=== PATIENT | female | born 1975 | race Caucasian/White ===

== ENCOUNTER 2017-03-01 05:19 | Emergency (ER) | payer BC, OTHER ==
[~2017-03-01] VITALS: Ht 157.5 cm; Wt 90.0 kg
[~2017-03-01 05:19] MED LIST: ACET325S8 PR; CELE40TA PO; METHO500 PO; XANA1TAB6 PO
[2017-03-01 05:22] VITALS: BP 119/80; PULSE 72; RESP 16; TEMP 97.8; O2SAT 99
--- NOTE | 2017-03-01 05:35 | PD ---
HPI Chief Complaint: Flank/Kidney Pain Time Seen by Provider: 05:35 Travel History International Travel<30 days: No Contact w/Intl Traveler<30days: No Traveled to known affect area: No History of Present Illness HPI 41-year-old female came to the emergency room with history of right sided flank pain that started 5 hours ago. Patient has history of kidney stone and says that this feels like a kidney stone. She has been nauseous but no vomiting. No history of hematuria. No history of fever or chills. Vital signs were otherwise stable. Pain is nonradiating and constant. No aggravating or relieving factors identified. PFSH Past Medical History Narrative Medical List of her past medical, surgical, social and family history is reviewed from the nursing note. Asthma: No Blood Disorders: No Anxiety: No Depression: No Heart Rhythm Problems: No Cancer: No High Cholesterol: No Chemotherapy: No Chest Pain: No Congestive Heart Failure: No COPD: No Diabetes: No Diminished Hearing: No Deep Vein Thrombosis: Yes Genitourinary: No Headaches: Yes Immune Disorder: No Kidney Stones: Yes Musculoskeletal: Yes Neurologic: No Psychiatric: No Reproductive: No Respiratory: Yes (HX PE) Radiation Therapy: No Sleep Apnea: No Thyroid Disease: No ?: Not : 3 Para: 1 Miscarriage: 2 Past Surgical History Section: Yes Genitourinary Surgery: Yes (BLADDER STENT/REMOVED. LITHOTRIPSY) Hysterectomy: Yes (PARTIAL) Other Surgery: Yes (BREAST REDUCTION, adenoids removed) Social History Alcohol Use: Yes (OCC) Tobacco Use: No Substance Use: No Allergies-Medications (Allergen,Severity, Reaction): Coded Allergies: hydromorphone (Unverified Allergy, Severe, 03/01/17) meperidine (Unverified Allergy, Severe, VOMITING, 03/01/17) topiramate (Unverified Allergy, Severe, 03/01/17) Comments List of her allergies reviewed from the nursing note. Reported Meds & Prescriptions Reported Meds & Active Scripts Active Flomax (Tamsulosin HCl) 0.4 Mg Cap 0.4 Mg PO HS Zofran Odt (Ondansetron Odt) 4 Mg Tab 4 Mg SL Q6HR PRN Hydrocodone-Acetaminophen 5-325 mg Tab 1 Tab PO Q6H PRN Reported Xanax (Alprazolam) 0.5 Mg Tab 0.5 Mg PO Q4H PRN Cymbalta DR (Duloxetine HCl) 60 Mg Capdr 60 Mg PO DAILY Propranolol (Propranolol HCl) 40 Mg Tab 40 Mg PO Q12HR Narrative Medication List of her home medications reviewed from the nursing note. Review of Systems Except as stated in HPI: all other systems reviewed are Neg Genitourinary: Positive: Flank Pain Physical Exam Narrative GENERAL: Awake, alert, moderate distress SKIN: Focused skin assessment warm/dry. HEAD: Atraumatic. Normocephalic. EYES: Pupils equal and round. No scleral icterus. No injection or drainage. ENT: No nasal bleeding or discharge. Mucous membranes pink and moist. NECK: Trachea midline. No JVD. CARDIOVASCULAR: Regular rate and rhythm. No murmur appreciated. RESPIRATORY: No accessory muscle use. Clear to auscultation. Breath sounds equal bilaterally. GASTROINTESTINAL: Abdomen soft, non-tender, nondistended. Hepatic and splenic margins not palpable. MUSCULOSKELETAL: No obvious deformities. No clubbing. No cyanosis. No edema. NEUROLOGICAL: Awake and alert. No obvious cranial nerve deficits. Motor grossly within normal limits. Normal speech. PSYCHIATRIC: Appropriate mood and affect; insight and judgment normal. Data Data Last Documented VS Orders Orders Complete Blood Count With Diff (03/01/17 05:39) Basic Metabolic Panel (Bmp) (03/01/17 05:39) Urinalysis - C+S If Indicated (03/01/17 05:39) Ct Abd/Pel W/O Iv Contrast (03/01/17 05:39) Ecg Monitoring (03/01/17 05:39) Iv Access Insert/Monitor (03/01/17 05:39) Ketorolac Inj (Toradol Inj) (03/01/17 05:45) Morphine Inj (Morphine Inj) (03/01/17 05:45) Ondansetron Inj (Zofran Inj) (03/01/17 05:45) Sodium Chloride 0.9% Flush (Ns Flush) (03/01/17 05:45) Sodium Chlor 0.9% 1000 Ml Inj (Ns 1000 M (03/01/17 05:39) Ed Discharge Order (03/01/17 06:51) Morphine Inj (Morphine Inj) (03/01/17 07:00) Tamsulosin (Flomax) (03/01/17 07:00) Electrocardiogram (03/01/17 06:27) Labs Laboratory Tests Test 03/01/17 05:40 03/01/17 05:45 Urine Color YELLOW Urine Turbidity HAZY Urine pH 5.5 Urine Specific [place] 1.020 Urine Protein TRACE mg/dL Urine Glucose (UA) NEG mg/dL Urine Ketones NEG mg/dL Urine Occult Blood LARGE Urine Nitrite NEG Urine Bilirubin NEG Urine Urobilinogen LESS THAN 2.0 MG/DL Urine Leukocyte Esterase NEG Urine RBC /hpf Urine WBC 7 /hpf Urine Squamous Epithelial Cells 7 /hpf Urine Bacteria OCC /hpf Urine Mucus MOD /lpf Microscopic Urinalysis Comment CULT NOT INDICATED White Blood Count 6.5 TH/MM3 Red Blood Count 4.42 MIL/MM3 Hemoglobin 13.6 GM/DL Hematocrit 39.9 % Mean Corpuscular Volume 90.2 FL Mean Corpuscular Hemoglobin 30.8 PG Mean Corpuscular Hemoglobin Concent 34.1 % Red Cell Distribution Width 13.8 % Platelet Count 289 TH/MM3 Mean Platelet Volume 7.6 FL Neutrophils (%) (Auto) 55.8 % Lymphocytes (%) (Auto) 33.4 % Monocytes (%) (Auto) 7.9 % Eosinophils (%) (Auto) 2.3 % Basophils (%) (Auto) 0.6 % Neutrophils # (Auto) 3.6 TH/MM3 Lymphocytes # (Auto) 2.2 TH/MM3 Monocytes # (Auto) 0.5 TH/MM3 Eosinophils # (Auto) 0.1 TH/MM3 Basophils # (Auto) 0.0 TH/MM3 CBC Comment DIFF FINAL Differential Comment Blood Urea Nitrogen 12 MG/DL Creatinine 0.71 MG/DL Random Glucose 121 MG/DL Calcium Level 8.8 MG/DL Sodium Level 138 MEQ/L Potassium Level 3.9 MEQ/L Chloride Level 104 MEQ/L Carbon Dioxide Level 24.6 MEQ/L Anion Gap 9 MEQ/L Estimat Glomerular Filtration Rate 90 ML/MIN [facility] Medical Decision Making Medical Screen Exam Complete: Yes Emergency Medical Condition: Yes Medical Record Reviewed: Yes Interpretation(s) Twelve-lead EKG was reviewed by me. Normal sinus rhythm, normal axis, nonspecific ST-T wave changes. Heart rate of 75 bpm. Differential Diagnosis Ureteral colic, pyelonephritis, muscular skeletal pain Narrative Course 6:58 AM blood test results of back and within acceptable limits. Patient was medicated for pain. I looked at the CAT scan report and shows a proximal right ureter 6 mm stone. Patient's pain is controlled at this point. I'm giving her Flomax and one more dose of pain medication and she will be discharged home. I explained to her the incidental finding on the CAT scan report of her bilateral adnexal masses. She will get a copy of the CAT scan report and I have asked her to take this report to her primary care or her BAROMETERS CALIBRATOR to get an outpatient MRI. Patient had a brief episode of tachycardia while she was in getting the fluid. Patient has history of frequent tachycardia she is on propranolol for it. 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 Procedures EKG Prior to Arrival: No Diagnosis Primary Impression: Ureteral colic Additional Impression: Adnexal mass Referrals: Vamsi Tejada MD 2 days Primary Care Physician 2 days Additional Instructions: Please return to the ER if the condition worsens or any other new concerns. Otherwise follow-up with your primary care and the urologist whose name and number been given to you. Please take the CAT scan report to your primary care and/or your BAROMETERS CALIBRATOR and get an outpatient MRI done. Take the medications as per the prescription direction. Med/Other Pt SpecificInfo: Prescription(s) given Scripts Tamsulosin (Flomax) 0.4 Mg Cap 0.4 MG PO HS for Manage Prostate Problems, #10 CAP 0 Refills Prov: Roderick Rhodes MD 03/01/17 Ondansetron Odt (Zofran Odt) 4 Mg Tab 4 MG SL Q6HR Y for Nausea/Vomiting, #10 TAB 0 Refills Prov: Roderick Rhodes MD 03/01/17 Hydrocodone-Acetaminophen (Hydrocodone-Acetaminophen) 5-325 mg Tab 1 TAB PO Q6H Y for PAIN, #12 TAB 0 Refills Prov: Roderick Rhodes MD 03/01/17 Disposition: 01 DISCHARGE HOME Condition: Stable Roderick Rhodes MD Mar 01, 2017 05:35
[2017-03-01] MEDS ORDERED: SODIUM CHLOR 0.9% 1000 ML INJ 1,000 ML IV ONE (05:39)
[2017-03-01] MEDS ORDERED: KETOROLAC TROMETHAMINE 30 MG/ML (IVP) VIAL IV PUSH ONE (05:45)
[2017-03-01] MEDS ORDERED: ONDANSETRON HCL 4 MG/2 ML VIAL IV PUSH ONE (05:45)
[2017-03-01] MEDS ORDERED: MORPHINE SULFATE 4 MG/ML INJ IV PUSH ONE ×2 (05:45→07:00)
[2017-03-01] MEDS ORDERED: SODIUM CHLORIDE 0.9% FLUSH 10 ML FLUSH IVF PRN (05:45)
[2017-03-01 05:49] VITALS: BP 115/68; PULSE 78; RESP 18; O2SAT 97
[2017-03-01] MEDS ORDERED: ALPR.5 PO (06:04)
[2017-03-01] MEDS ORDERED: CYMB60CA PO (06:04)
[2017-03-01] MEDS ORDERED: PROP40TA3 PO (06:04)
[2017-03-01 06:25] LABS: AUTOMATED NEUTROPHIL # 3.6 TH/MM3 (1.8-7.7); BASOPHIL % 0.6 % (0.0-2.0); EOSINOPHIL # 0.1 TH/MM3 (0-0.4); EOSINOPHIL % 2.3 % (0.0-4.0); HEMATOCRIT 39.9 % (35.0-46.0); HEMO FLAGS DIFF FINAL; LYMPH % 33.4 % (9.0-44.0); LYMPHOCYTE # 2.2 TH/MM3 (1.0-4.8); MEAN CELL VOLUME 90.2 FL (80.0-100.0); MEAN CORPUSCULAR HEMOGLOBIN 30.8 PG (27.0-34.0); MEAN CORPUSCULAR HGB CONC 34.1 % (32.0-36.0); MONO % 7.9 % (0.0-8.0); NEUT % 55.8 % (16.0-70.0); PLATELET COUNT 289 TH/MM3 (150-450); RED BLOOD COUNT 4.42 MIL/MM3 (4.00-5.30); RED CELL DISTRIBUTION WIDTH 13.8 % (11.6-17.2); WHITE BLOOD COUNT 6.5 TH/MM3 (4.0-11.0)
--- NOTE | 2017-03-01 06:28 | RADRPT ---
EXAM DATE/TIME: 03/01/2017 05:42 [place] COMPARISON: No previous studies available for comparison. INDICATIONS : Right flank pain, evaluate for renal stone ORAL CONTRAST: No oral contrast ingested. RADIATION DOSE: 19.84 CTDIvol (mGy) MEDICAL HISTORY : Renal calculi. Cardiovascular disease Deep venous thrombosis. SURGICAL HISTORY : Hysterectomy. ENCOUNTER: Initial ACUITY: 2 days PAIN SCALE: 4/10 LOCATION: Right flank TECHNIQUE: Volumetric scanning of the abdomen and pelvis was performed. Using automated exposure control and ad justment of the mA and/or kV according to patient size, radiation dose was kept as low as reasonably achievable to obtain optimal diagnostic quality images. DICOM format image data is available electro nically for review and comparison. FINDINGS: Mild fatty infiltration of the liver and hepatomegaly. Gallbladder, spleen, pancreas, adrenal glands are unremarkable. There are nonobstructing calculi ON the left including 5 mm left midpole calculus, or 0.9 mm left lower pole calculus, and there is a right proximal ureteral stone with mild right-side d hydronephrosis seen. The stone measures 6.1 mm on the 64. Urinary bladder unremarkable. The patient is status post hysterectomy. There is a left ovarian soft tissue mass measuring 3.9 x 3.5 cm in AP a nd transverse dimension suspected. A right ovarian cystic and solid appearing mass is also suspected, solid component 2.2 x 2.2 cm on image 116 and cystic component measuring 2.2 x 2.1 cm on image 124. There is no adenopathy. No aneurysm. Appendix normal. Lung bases are clear. Osseous structures are in tact. CONCLUSION: Bilateral adnexal masses are noted and felt to be ovarian in etiology. MRI of the pelvis with and wit hout contrast is suggested for further characterization. Nonobstructing left renal calculi, and a right proximal ureteral stone at the ureteropelvic junction identified with mild right hydronephrosis. Chris Umana MD on March 01, 2017 at 6:23 Board Certified Radiologist. This report was verified electronically.
[2017-03-01 06:35] LABS: BACTERIA, URINE OCC /hpf; BLOOD, URINE LARGE (NEG); COMMENT (UR) CULT NOT INDICATED; CULTURE IF INDICATED CULT NOT INDICATED; GLUCOSE,URINE NEG (NEG); KETONE, URINE NEG (NEG); MUCUS URINE MOD /lpf (OCC); NITRITE,URINE NEG (NEG); PH, URINE 5.5 (5.0-8.5); SQUAMOUS EPITHELIAL CELL URINE 7 /hpf (0-5); URINE COLOR YELLOW (YELLW/STRAW)
[2017-03-01 06:38] LABS: BICARBONATE 24.6 MEQ/L (21.0-32.0); POTASSIUM 3.9 MEQ/L (3.5-5.1)
[2017-03-01] MEDS ORDERED: HYDR-3516 PO (06:55)
[2017-03-01] MEDS ORDERED: ZOFR4TAB3 SL (06:55)
[2017-03-01] MEDS ORDERED: TAMS5CAP PO (06:56)
[2017-03-01] MEDS ORDERED: TAMSULOSIN HCL 0.4 MG CAP PO ONE (07:00)
[2017-03-01 07:10] VITALS: BP 99/54; PULSE 70; RESP 15; O2SAT 98
--- NOTE | 2017-03-01 07:53 | EKG ---
Date Performed: 03/01/2017 Time Performed: 06:27:04 PTAGE: 41 years EKG: Sinus rhythm NORMAL ECG PREVIOUS TRACING : 03/07/2011 13.55 Compared to prior electrocardiogram, [place] has rotated right vang. DOCTOR: Ghanshyam Mary Interpretating Date/Time 03/01/2017 07:52:36
== END 2017-03-01 07:31 | disposition home or self-care (01) ==
LOC: NEPC 05:19
DX: N13.2 Hydronephrosis with renal and ureteral calculous obstruction (principal); Z87.442 Personal history of urinary calculi; Z86.718 Personal history of other venous thrombosis and embolism; Z79.899 Other long term (current) drug therapy; Z88.8 Allergy status to other drugs, medicaments and biological substances; Z88.5 Allergy status to narcotic agent
CPT/HCPCS: 74176; 80048; 81001; 85025; 93005; 96361; 96374; 96375; 96376; 99285; J1885; J2270; J2405; J7030

== ENCOUNTER 2017-09-07 06:16 | Inpatient (IN) | payer BC, OTHER ==
[~2017-09-07] VITALS: Ht 157.5 cm; Wt 95.9 kg
[2017-09-07] VITALS (10 sets, daily range): BP systolic 104–124; BP diastolic 54–75; PULSE 55–77; RESP 16–20; TEMP 98–98.4; O2SAT 97–99
[~2017-09-07 06:16] MED LIST changes: -ACET325S8 PR; +ALPR.5 PO; -CELE40TA PO; +CYMB60CA PO; +HYDR-3516 PO; -METHO500 PO; +PROP40TA3 PO; +TAMS5CAP PO; -XANA1TAB6 PO; +ZOFR4TAB3 SL
--- NOTE | 2017-09-07 07:09 | RADRPT ---
EXAM DATE: 09/07/2017 6:59 AM EDT AGE/SEX: 41 years / Female INDICATIONS: Chest pain. CLINICAL DATA: This is the patient's initial encounter. Patient reports that signs and symptoms have been present for 1 day and indicates a pain score of 6/10. MEDICAL/SURGICAL HISTORY: . PE. None. COMPARISON: No prior exams available for comparison. FINDINGS: Portable AP view of the chest demonstrates a normal-sized cardiac silhouette. The lungs demonstrate n o definite effusion, consolidation, or pneumothorax. The bones and soft tissues demonstrate no acute finding. EKG lines overlie the patient CONCLUSION: No acute cardiopulmonary abnormality is identified. Electronically signed by: Ryne Garcia MD 09/07/2017 7:07 AM EDT
[2017-09-07] MEDS ORDERED: SODIUM CHLOR 0.9% 1000 ML INJ 1,000 ML IV ONE (07:15)
[2017-09-07] MEDS ORDERED: ASPIRIN 81 MG CHEW TAB CHEW ONE (07:15)
--- NOTE | 2017-09-07 07:20 | PD ---
HPI Chief Complaint: Chest Pain Time Seen by Provider: 07:05 Travel History International Travel<30 days: No Contact w/Intl Traveler<30days: No Traveled to known affect area: No History of Present Illness HPI The patient is a 41-year-old female who presents to the emergency department for chest pain. The patient states she has had intermittent substernal, burning and pressure related pain for 1 week. The patient states the chest pain is intermittent, is associated with shortness of breath and mild nausea. The patient does have a history of an enlarged atrium and was followed previously by her bicycle i assembler, Dr. Arias. The patient does have a previous history of pulmonary embolism after she had a stent placed for kidney stone 6 years ago, was on Coumadin for 1 year and then taken off of the Coumadin. The patient thinks she had a PE at that time secondary to a DVT in an upper extremity. She denies any recent swelling lower extremities. The chest pain is intermittent, she denies any associated diaphoresis. She denies any exertional symptoms. Symptoms are moderate. Patient is also followed by her primary physician, Dr. José Don. The patient denies any history of hypertension, hyperlipidemia, tobacco use, or significant family medical history for early heart disease. She does have a history of type 2 diabetes which was controlled by diet, is no longer diabetic. PFSH Past Medical History Asthma: No Blood Disorders: No Anxiety: No Depression: No Heart Rhythm Problems: No Cancer: No High Cholesterol: No Chemotherapy: No Chest Pain: No Congestive Heart Failure: No COPD: No Diabetes: No Diminished Hearing: No Deep Vein Thrombosis: Yes Genitourinary: No Headaches: Yes Immune Disorder: No Kidney Stones: Yes Musculoskeletal: Yes Neurologic: No Psychiatric: No Reproductive: No Respiratory: Yes (HX PE) Radiation Therapy: No Sleep Apnea: No Thyroid Disease: No ?: Not : 3 Para: 1 Miscarriage: 2 Past Surgical History Section: Yes Genitourinary Surgery: Yes (BLADDER STENT/REMOVED. LITHOTRIPSY) Hysterectomy: Yes (PARTIAL) Other Surgery: Yes (BREAST REDUCTION, adenoids removed) Social History Alcohol Use: Yes (OCC) Tobacco Use: No Substance Use: No Allergies-Medications (Allergen,Severity, Reaction): Coded Allergies: hydromorphone (Unverified Allergy, Severe, 09/07/17) meperidine (Unverified Allergy, Severe, VOMITING, 09/07/17) topiramate (Unverified Allergy, Severe, 09/07/17) Reported Meds & Prescriptions Reported Meds & Active Scripts Active Flomax (Tamsulosin HCl) 0.4 Mg Cap 0.4 Mg PO HS Zofran Odt (Ondansetron Odt) 4 Mg Tab 4 Mg SL Q6HR PRN Hydrocodone-Acetaminophen 5-325 mg Tab 1 Tab PO Q6H PRN Reported Xanax (Alprazolam) 0.5 Mg Tab 0.5 Mg PO Q4H PRN Cymbalta DR (Duloxetine HCl) 60 Mg Capdr 60 Mg PO DAILY Propranolol (Propranolol HCl) 40 Mg Tab 40 Mg PO Q12HR Review of Systems Except as stated in HPI: all other systems reviewed are Neg General / Constitutional: No: Fever HENT: No: Lightheadedness Cardiovascular: Positive: Chest Pain or Discomfort, Palpitations, Tachycardia, No: Diaphoresis Respiratory: Positive: Shortness of Breath Gastrointestinal: Positive: Nausea, No: Vomiting Musculoskeletal: No: Edema Neurologic: No: Dizziness Psychiatric: Positive: Anxiety Physical Exam Narrative GENERAL: Awake, alert, pleasant 41-year-old female appears her stated age and is slightly anxious. SKIN: Focused skin assessment warm/dry. HEAD: Atraumatic. Normocephalic. EYES: Pupils equal and round. No scleral icterus. No injection or drainage. ENT: No nasal bleeding or discharge. Mucous membranes pink and moist. NECK: Trachea midline. No JVD. CARDIOVASCULAR: Regular rate and rhythm. No murmur appreciated. RESPIRATORY: No accessory muscle use. Clear to auscultation. Breath sounds equal bilaterally. GASTROINTESTINAL: Abdomen soft, non-tender, nondistended. No rebound tenderness. MUSCULOSKELETAL: No obvious deformities. No clubbing. No cyanosis. No edema. NEUROLOGICAL: Awake and alert. No obvious cranial nerve deficits. Motor grossly within normal limits. Normal speech. Nonfocal. PSYCHIATRIC: Slightly anxious, insight and judgment are normal. Data Data Last Documented VS Vital Signs Date Time Temp Pulse Resp B/P (MAP) Pulse Ox O2 Delivery O2 Flow Rate FiO2 09/07/17 10:22 61 20 104/61 (75) 99 Room Air 09/07/17 06:22 98.0 Orders Orders Complete Blood Count With Diff (09/07/17 06:46) Ckmb (Isoenzyme) Profile (09/07/17 06:46) Troponin I (09/07/17 06:46) Chest, Single Ap (09/07/17 06:46) Iv Access Insert/Monitor (09/07/17 06:46) Ecg Monitoring (09/07/17 06:46) Oxygen Administration (09/07/17 06:46) Oximetry (09/07/17 06:46) D-Dimer (09/07/17 07:15) Aspirin Chew (Aspirin Chew) (09/07/17 07:15) Sodium Chlor 0.9% 1000 Ml Inj (Ns 1000 M (09/07/17 07:15) Lipase (09/07/17 07:15) Ed Urine Pregnancytest Poc (09/07/17 07:15) Comprehensive Metabolic Panel (09/07/17 07:42) Metoclopramide Inj (Reglan Inj) (09/07/17 08:00) Ct Pulmonary Angiogram (09/07/17 ) Morphine Inj (Morphine Inj) (09/07/17 09:30) Electrocardiogram (09/07/17 06:35) Iohexol 350 Inj (Omnipaque 350 Inj) (09/07/17 10:43) Rivaroxaban (Xarelto) (09/07/17 11:15) Admit Order (Ed Use Only) (09/07/17 11:24) Labs Laboratory Tests Test 09/07/17 06:42 09/07/17 07:30 White Blood Count 5.4 TH/MM3 Red Blood Count 4.25 MIL/MM3 Hemoglobin 12.8 GM/DL Hematocrit 38.2 % Mean Corpuscular Volume 89.8 FL Mean Corpuscular Hemoglobin 30.1 PG Mean Corpuscular Hemoglobin Concent 33.5 % Red Cell Distribution Width 13.4 % Platelet Count 254 TH/MM3 Mean Platelet Volume 7.6 FL Neutrophils (%) (Auto) 47.2 % Lymphocytes (%) (Auto) 41.3 % Monocytes (%) (Auto) 8.9 % Eosinophils (%) (Auto) 2.0 % Basophils (%) (Auto) 0.6 % Neutrophils # (Auto) 2.5 TH/MM3 Lymphocytes # (Auto) 2.2 TH/MM3 Monocytes # (Auto) 0.5 TH/MM3 Eosinophils # (Auto) 0.1 TH/MM3 Basophils # (Auto) 0.0 TH/MM3 CBC Comment DIFF FINAL Differential Comment Blood Urea Nitrogen 16 MG/DL Creatinine 0.68 MG/DL Random Glucose 110 MG/DL Total Protein 6.8 GM/DL Albumin 3.5 GM/DL Calcium Level 9.3 MG/DL Alkaline Phosphatase 60 U/L Aspartate Amino Transf (AST/SGOT) 15 U/L Alanine Aminotransferase (ALT/SGPT) 23 U/L Total Bilirubin 0.2 MG/DL Sodium Level 141 MEQ/L Potassium Level 3.9 MEQ/L Chloride Level 107 MEQ/L Carbon Dioxide Level 23.8 MEQ/L Anion Gap 10 MEQ/L Estimat Glomerular Filtration Rate 95 ML/MIN Total Creatine Kinase 71 U/L Troponin I LESS THAN 0.02 NG/ML Lipase 147 U/L D-Dimer Quantitative (PE/DVT) 0.56 MG/L FEU [facility] Medical Decision Making Medical Screen Exam Complete: Yes Emergency Medical Condition: Yes Medical Record Reviewed: Yes Interpretation(s) EKG reveals normal sinus rhythm with a rate of 62. No ischemic changes or ectopy noted. Last Impressions Chest X-Ray 09/07/17 0646 Signed Impressions: CONCLUSION: No acute cardiopulmonary abnormality is identified. CT Angiography 09/07/17 0000 Signed Impressions: CONCLUSION: 1. There is a small segmental and subsegmental filling defect in one of the [facility] lower lobe pulmonary arteries. No other PE is identified. 2. Remainder of the examination demonstrates no acute abnormality. Laboratory Tests Test 09/07/17 06:42 09/07/17 07:30 White Blood Count 5.4 TH/MM3 Red Blood Count 4.25 MIL/MM3 Hemoglobin 12.8 GM/DL Hematocrit 38.2 % Mean Corpuscular Volume 89.8 FL Mean Corpuscular Hemoglobin 30.1 PG Mean Corpuscular Hemoglobin Concent 33.5 % Red Cell Distribution Width 13.4 % Platelet Count 254 TH/MM3 Mean Platelet Volume 7.6 FL Neutrophils (%) (Auto) 47.2 % Lymphocytes (%) (Auto) 41.3 % Monocytes (%) (Auto) 8.9 % Eosinophils (%) (Auto) 2.0 % Basophils (%) (Auto) 0.6 % Neutrophils # (Auto) 2.5 TH/MM3 Lymphocytes # (Auto) 2.2 TH/MM3 Monocytes # (Auto) 0.5 TH/MM3 Eosinophils # (Auto) 0.1 TH/MM3 Basophils # (Auto) 0.0 TH/MM3 CBC Comment DIFF FINAL Differential Comment Blood Urea Nitrogen 16 MG/DL Creatinine 0.68 MG/DL Random Glucose 110 MG/DL Total Protein 6.8 GM/DL Albumin 3.5 GM/DL Calcium Level 9.3 MG/DL Alkaline Phosphatase 60 U/L Aspartate Amino Transf (AST/SGOT) 15 U/L Alanine Aminotransferase (ALT/SGPT) 23 U/L Total Bilirubin 0.2 MG/DL Sodium Level 141 MEQ/L Potassium Level 3.9 MEQ/L Chloride Level 107 MEQ/L Carbon Dioxide Level 23.8 MEQ/L Anion Gap 10 MEQ/L Estimat Glomerular Filtration Rate 95 ML/MIN Total Creatine Kinase 71 U/L Troponin I LESS THAN 0.02 NG/ML Lipase 147 U/L D-Dimer Quantitative (PE/DVT) 0.56 MG/L FEU Differential Diagnosis Differential diagnosis includes cardiomyopathy, pulmonary embolism, acute coronary syndrome, dysrhythmia, electrolyte abnormality, dehydration, somatization, anxiety, GERD, pleural effusion, pneumonia. Narrative Course IV was established, labs are drawn and sent, the patient was placed on cardiac telemetry monitoring and continuous pulse oximetry monitoring. EKG was ordered and interpreted. Chest x-ray was obtained. D-dimer was sent to lab. The patient was a bead filler aspirin 162 mg orally and 1 L of IV fluids. The patient' s heart rate would vary from the 80s and 90s, however, would drop to the 40s, the patient would feel lightheaded when it would drop into the 40s. The patient states she has been on her propanolol for some time, however, does note she has bouts of bradycardia with symptoms including lightheadedness and dizziness. The patient's d-dimer was positive, therefore, CT pulmonary angiogram was ordered. The patient's initial troponin and CPK were within normal limits. CT does reveal a filling defect in 1 of the segmental and subsegmental arteries in the right lower lobe, therefore, the patient was placed on Xarelto. The patient appears to have a small PE. She also has runs of bradycardia and tachycardia, may benefit from cardiac telemetry monitoring and/or Holter monitor with echocardiogram. Therefore, the patient will be admitted. Physician Communication Physician Communication The on-call medical service was paged for admission, I discussed the patient with Dr. Richardson who agrees with admission. Diagnosis Primary Impression: Dysrhythmia Qualified Codes: I49.9 - Cardiac arrhythmia, unspecified Additional Impressions: Atypical chest pain Pulmonary embolism Qualified Codes: I26.99 - Other pulmonary embolism without acute cor pulmonale Admitting Information Admitting Physician Requests: Admit Condition: Stable Troy Barfield MD Sep 07, 2017 07:20
[2017-09-07 07:25] LABS: AUTOMATED NEUTROPHIL # 2.5 TH/MM3 (1.8-7.7); BASOPHIL % 0.6 % (0.0-2.0); EOSINOPHIL # 0.1 TH/MM3 (0-0.4); HEMATOCRIT 38.2 % (35.0-46.0); HEMOGLOBIN 12.8 GM/DL (11.6-15.3); LYMPH % 41.3 % (9.0-44.0); LYMPHOCYTE # 2.2 TH/MM3 (1.0-4.8); MEAN CELL VOLUME 89.8 FL (80.0-100.0); MEAN CORPUSCULAR HEMOGLOBIN 30.1 PG (27.0-34.0); MEAN CORPUSCULAR HGB CONC 33.5 % (32.0-36.0); MEAN PLATELET VOLUME 7.6 FL (7.0-11.0); MONO % 8.9 % (0.0-8.0); MONOCYTE # 0.5 TH/MM3 (0-0.9); NEUT % 47.2 % (16.0-70.0); PLATELET COUNT 254 TH/MM3 (150-450); RED BLOOD COUNT 4.25 MIL/MM3 (4.00-5.30); RED CELL DISTRIBUTION WIDTH 13.4 % (11.6-17.2); WHITE BLOOD COUNT 5.4 TH/MM3 (4.0-11.0)
[2017-09-07 07:44] LABS: TROPONIN I LESS THAN 0.02 NG/ML (0.02-0.05)
[2017-09-07] MEDS ORDERED: MORPHINE SULFATE 2 MG/ML SYRINGE IV PUSH ONE (08:00)
[2017-09-07] MEDS ORDERED: METOCLOPRAMIDE HCL 10 MG/2 ML VIAL IV PUSH ONE (08:00)
[2017-09-07 08:26] LABS: ALT (GPT) 23 U/L (10-53)
[2017-09-07 08:29] LABS: ALBUMIN 3.5 GM/DL (3.4-5.0); ALKALINE PHOSPHATASE 60 U/L (45-117); AST (GOT) 15 U/L (15-37); BICARBONATE 23.8 MEQ/L (21.0-32.0); BLOOD UREA NITROGEN 16 MG/DL (7-18); CALCIUM 9.3 MG/DL (8.5-10.1); CHLORIDE 107 MEQ/L (98-107); CREATININE 0.68 MG/DL (0.50-1.00); GLOMERULAR FILTRATION RATE 95 ML/MIN (>89); GLUCOSE,RANDOM 110 MG/DL (74-106); SODIUM (NA) 141 MEQ/L (136-145); TOTAL BILIRUBIN ADULT 0.2 MG/DL (0.2-1.0); TOTAL PROTEIN 6.8 GM/DL (6.4-8.2)
[2017-09-07] MEDS ORDERED: MORPHINE SULFATE 4 MG/ML INJ IV PUSH ONE (09:30)
[2017-09-07] MEDS ORDERED: IOHEXOL 350 MG/ML 10 ML VIAL (for RAD DIAG) IVCONTRAST ONE (10:43)
--- NOTE | 2017-09-07 10:56 | RADRPT ---
EXAM DATE: 09/07/2017 10:44 AM EDT AGE/SEX: 41 years / Female INDICATIONS: Left side chest pain, intermittent shortness of breath. CLINICAL DATA: This is the patient's initial encounter. Patient reports that signs and symptoms have been present for 1 week and indicates a pain score of 5/10. MEDICAL/SURGICAL HISTORY: Deep venous thrombosis. Cardiovascular disease. Pulmonary embolism. . P artial hysterectomy. RADIATION DOSE: 11.05 CTDI (mGy) COMPARISON: No prior exams available for comparison. TECHNIQUE: Volumetric scanning was performed using a multi-row detector CT scanner during bolus infu paulette of 75 ml Omnipaque 350 (iohexol) nonionic water-soluble contrast as a single exam dose. The star a was post processed with a variety of visualization algorithms including full volume maximum intensi ty projection and sliding thin slab reformation. Using automated exposure control and adjustment of the mA and/or kV according to patient size, radiation dose was kept as low as reasonably achievable t o obtain optimal diagnostic quality images. FINDINGS: Pulmonary arteries: There is a small filling defect in the right lower lobe segmental and subsegmenta l level pulmonary arteries. No other PE is identified. Lungs: No consolidation or pneumothorax. No concerning pulmonary nodule is identified. Mediastinum: The heart and great vessels demonstrate no acute abnormality. No lymphadenopathy is pre sent. Pleurae: No pleural effusion or pleural thickening. Axillae: No lymphadenopathy. Musculoskeletal: The bones and soft tissues demonstrate no acute abnormality. Miscellaneous: The visualized upper abdominal structures demonstrate no acute abnormality. CONCLUSION: 1. There is a small segmental and subsegmental filling defect in one of the right lower lobe pulmona ry arteries. No other PE is identified. 2. Remainder of the examination demonstrates no acute abnormality. Electronically signed by: Ryne Garcia MD 09/07/2017 10:54 AM EDT
[2017-09-07] MEDS ORDERED: RIVAROXABAN 15 MG TAB PO ONE (11:15)
--- NOTE | 2017-09-07 12:03 | HHI.HP ---
[facility] Service Family Medicine Primary Care Physician José Don M.D. Admission Diagnosis Pulmonary embolism, dysrhythmia, chest pain Diagnoses: International Travel<30 Days: No Contact w/Intl Traveler<30days: No Known Affected Area: No History of Present Illness Mr. Leblanc is a 41-year-old female presenting to the ED with palpitations, shortness of breath, and chest pain. Patient states that she has had intermittent episodes of tachycardia and bradycardia over the last week with associated chest pain. She describes the chest pain as pressure-like up to 6/ 10 radiating up to her left shoulder. She reports that she has 5-6 episodes per day which are worse at night. These episodes wake her from sleep and lasted approximately 10-15 minutes. Each episode is associated with shortness of breath without diaphoresis. She can describe no alleviating factors, but does state that the episodes "go away on their own." These episodes are not worsened by exertion per her report. She has a history of atrial enlargement that was diagnosed approximately 3 years ago with episodes of intermittent tachycardia. She also has a history of pulmonary embolism that was diagnosed approximately 6 years ago after being hospitalized for a kidney stone with left upper extremity DVT. She was then on Coumadin for approximately 1 year which was discontinued. Her only other complaint is some early satiety with nausea, but denies any fevers, unexplained weight loss/gain, or night sweats. (Juan Miguel Richardson MD R2) Review of Systems Constitutional: DENIES: Fever, Chills Eyes: DENIES: Blurred vision, Double Vision Ears, nose, mouth, throat: DENIES: Throat pain, Running Nose Respiratory: COMPLAINS OF: Shortness of breath, DENIES: Cough, Hemoptysis, Sputum production Cardiovascular: COMPLAINS OF: Chest pain, Palpitations, DENIES: Syncope, Lower Extremity Edema Gastrointestinal: COMPLAINS OF: Nausea, DENIES: Abdominal pain, Constipation, Diarrhea, Vomiting Genitourinary: DENIES: Hematuria, Dysuria Musculoskeletal: DENIES: Joint pain, Muscle aches Integumentary: DENIES: Rash Hematologic/lymphatic: DENIES: Lymphadenopathy Immunologic/allergic: DENIES: Urticaria Neurologic: COMPLAINS OF: Headache Psychiatric: DENIES: Mood changes (Juan Miguel Richardson MD R2) Past Family Social History Past Medical History DVT in LUE resulting in PE (s/p IV during admission for kidney stones) Kidney stones Enlarged L atria Migraines Ovarian Cysts T2DM - controlled with diet DJD Anxiety Past Surgical History Partial Hysterectomy x1 Breast reduction Tonsillectomy (Juan Miguel Richardson MD R2) Allergies: Coded Allergies: hydromorphone (Unverified Allergy, Severe, 09/07/17) meperidine (Unverified Allergy, Severe, VOMITING, 09/07/17) topiramate (Unverified Allergy, Severe, 09/07/17) Family History Father - Liver malignancy, Mother - HPLD, otherwise healthy Children - Healthy Social History Lives with and 2 children. Works at [employer]. Tobacco - No reported history Alcohol - Socially, last drink was last Saturday, 6-8 drinks per occasion Illicit - No reported history (Juan Miguel Richardson MD R2) Physical Exam Vital Signs Vital Signs Date Time Temp Pulse Resp B/P (MAP) Pulse Ox O2 Delivery O2 Flow Rate FiO2 09/07/17 10:22 61 20 104/61 (75) 99 Room Air 09/07/17 10:00 20 09/07/17 07:21 69 20 112/67 (82) 97 Room Air 09/07/17 06:48 99 Room Air 09/07/17 06:40 69 16 108/75 (86) 99 Room Air 09/07/17 06:22 98.0 72 18 124/66 (85) 98 Physical Exam GENERAL: Well-appearing female lying in bed in no acute distress with family at the bedside. SKIN: Warm and dry. No rash. HEENT: Atraumatic, normocephalic with extraocular motions intact. No rhinorrhea. No palpable LAD, JVD, or thyroid abnormality. CARDIOVASCULAR: Regular rate and rhythm without obvious murmurs, gallops, or rubs. 2+ pulses in all four extremities. RESPIRATORY: Clear to auscultation bilaterally with no CRW. No increased work of breathing at this time on room air. Patient able to communicate in full sentences. GASTROINTESTINAL: Abdomen soft, non-tender, nondistended with positive bowel sounds. No masses appreciated. MUSCULOSKELETAL: No cyanosis or edema. No calf tenderness. Ambulating well without assistance. NEURO/PSYCH: Afocal. Awake, alert, and oriented x3. Normal speech and judgement. Laboratory Laboratory Tests Test 09/07/17 06:42 09/07/17 07:30 White Blood Count 5.4 Red Blood Count 4.25 Hemoglobin 12.8 Hematocrit 38.2 Mean Corpuscular Volume 89.8 Mean Corpuscular Hemoglobin 30.1 Mean Corpuscular Hemoglobin Concent 33.5 Red Cell Distribution Width 13.4 Platelet Count 254 Mean Platelet Volume 7.6 Neutrophils (%) (Auto) 47.2 Lymphocytes (%) (Auto) 41.3 Monocytes (%) (Auto) 8.9 Eosinophils (%) (Auto) 2.0 Basophils (%) (Auto) 0.6 Neutrophils # (Auto) 2.5 Lymphocytes # (Auto) 2.2 Monocytes # (Auto) 0.5 Eosinophils # (Auto) 0.1 Basophils # (Auto) 0.0 CBC Comment DIFF FINAL Differential Comment Blood Urea Nitrogen 16 Creatinine 0.68 Random Glucose 110 Total Protein 6.8 Albumin 3.5 Calcium Level 9.3 Alkaline Phosphatase 60 Aspartate Amino Transf (AST/SGOT) 15 Alanine Aminotransferase (ALT/SGPT) 23 Total Bilirubin 0.2 Sodium Level 141 Potassium Level 3.9 Chloride Level 107 Carbon Dioxide Level 23.8 Anion Gap 10 Estimat Glomerular Filtration Rate 95 Total Creatine Kinase 71 Troponin I LESS THAN 0.02 Lipase 147 D-Dimer Quantitative (PE/DVT) 0.56 (Juan Miguel Richardson MD R2) Result Diagram: 09/07/17 0642 09/07/17 0642 Imaging Last 72 hours Impressions Chest X-Ray 09/07/17 0646 Signed Impressions: CONCLUSION: No acute cardiopulmonary abnormality is identified. CT Angiography 09/07/17 0000 Signed Impressions: CONCLUSION: 1. There is a small segmental and subsegmental filling defect in one of the [facility] lower lobe pulmonary arteries. No other PE is identified. 2. Remainder of the examination demonstrates no acute abnormality. (Juan Miguel Richardson MD R2) Caprini VTE Risk Assessment Caprini VTE Risk Assessment: Mod/High Risk (score >= 2) Caprini Risk Assessment Model Point Value = 1 Point Value = 2 Point Value = 3 Point Value = 5 Age 41-60 Minor surgery BMI > 25 kg/m2 Swollen legs Varicose veins or History of unexplained or recurrent spontaneous Oral contraceptives or hormone replacement Sepsis (< 1 month) Serious lung disease, including pneumonia (< 1 month) Abnormal pulmonary function Acute myocardial infarction Congestive heart failure (< 1 month) History of inflammatory bowel disease Medical patient at bed rest Age 61-74 Arthroscopic surgery Major open surgery (> 45 min) Laparoscopic surgery (> 45 min) Malignancy Confined to bed (> 72 hours) Immobilizing plaster cast Central venous access Age >= 75 History of VTE Family history of VTE Factor V Leiden Prothrombin [id number] Lupus anticoagulant Anticardiolipin antibodies Elevated serum homocysteine Heparin-induced thrombocytopenia Other congenital or acquired thrombophilia Stroke (< 1 month) Elective arthroplasty Hip, pelvis, or leg fracture Acute spinal cord injury (< 1 month) Prophylaxis Regimen Total Risk Factor Score Risk Level Prophylaxis Regimen 0-1 Low Early ambulation 2 Moderate Order ONE of the following: *Sequential Compression Device (SCD) *Heparin 5000 units SQ BID 3-4 Higher Order ONE of the following medications: *Heparin 5000 units SQ TID *Enoxaparin/Lovenox 40 mg SQ daily (WT < 150 kg, CrCl > 30 mL/min) *Enoxaparin/Lovenox 30 mg SQ daily (WT < 150 kg, CrCl > 10-29 mL/min) *Enoxaparin/Lovenox 30 mg SQ BID (WT < 150 kg, CrCl > 30 mL/min) AND/OR *Sequential Compression Device (SCD) 5 or more Highest Order ONE of the following medications: *Heparin 5000 units SQ TID (Preferred with Epidurals) *Enoxaparin/Lovenox 40 mg SQ daily (WT < 150 kg, CrCl > 30 mL/min) *Enoxaparin/Lovenox 30 mg SQ daily (WT < 150 kg, CrCl > 10-29 mL/min) *Enoxaparin/Lovenox 30 mg SQ BID (WT < 150 kg, CrCl > 30 mL/min) AND *Sequential Compression Device (SCD) (Juan Miguel Richardson MD R2) Assessment and Plan Assessment and Plan Mrs. Leblanc is a 41-year-old female admitted for pulmonary embolism. Code Status Full code Discussed Condition With Dr. Barfield, ER physician (Juan Miguel Richardson MD R2) Attending Attestation Patient seen and examined. Case reviewed and discussed with the resident team. Agree with plan of care as discussed with me and documented in the resident note. she was seen in the ED on admission (Julia Ortiz MD) Problem List: (1) Pulmonary embolism ICD Codes: I26.99 - Other pulmonary embolism without acute cor pulmonale Status: Acute Plan: Patient presenting with episodes of tachycardia with shortness of breath found to have elevated d-dimer. CTA showing filling defect in the right lower lobe concerning for PE. Patient with history of left upper extremity DVT resulting in PE. Completed 1 year of anticoagulation was Xarelto. -D-dimer: Elevated to 0.56 -CTA: Small segmental and subsegmental filling defect in 1 of the right lower lobe pulmonary arteries. No other PE identified. Otherwise within normal limits. -CBC: Within normal limits -Troponin and EKG without signs of myocardial strain -Pulse oximetry, incentive spirometry -Repeat echocardiogram ordered Medications: -Patient given Xarelto 15 mg once in ED -Continue Xarelto 15 mg twice daily for a total of 21 days -Plan to transition to Xarelto 20 mg daily for chronic anticoagulation -DuoNeb's as needed for shortness of breath (2) Dysrhythmia ICD Codes: I49.9 - Cardiac arrhythmia, unspecified Status: Chronic Plan: Patient with history of tachycardia diagnosed with left atrial enlargement presenting with new episodes of tachycardia/bradycardia per her report -EKG: Sinus rhythm with heart rate of 77 bpm. PVCs. No interval abnormalities. No acute ST elevation/depression. (Per medical team read.) -Troponin: Less than 0.02 -CK: 71 -CMP: Within normal limits -Repeat echocardiogram ordered for left atrial enlargement -Trend EKG, troponin, CK-MB -Consult cardiology, appreciate recommendations Medications: -Continue home propranolol 40 mg twice a day (3) Atypical chest pain ICD Codes: R07.89 - Other chest pain Status: Acute Plan: Patient presenting with atypical chest pain likely secondary to tachycardic/bradycardic episodes -Please see plan as above (4) Nausea without vomiting ICD Codes: R11.0 - Nausea Status: Acute Plan: Patient with recent episodes of nausea without vomiting -CMP: Within normal limits -Patient appears well-hydrated -Patient tolerating regular diet Medications: -Zofran as needed for nausea/vomiting -Famotidine as needed for reflux -Patient given Reglan 5 mg once in ED (5) Anxiety ICD Codes: F41.9 - Anxiety disorder, unspecified Status: Chronic Plan: Patient with reported anxiety Medications: -Continue home duloxetine 60 mg daily (6) T2DM (type 2 diabetes mellitus) ICD Codes: E11.9 - Type 2 diabetes mellitus without complications Status: Chronic Plan: Patient with reported type 2 diabetes mellitus that is diet controlled -Continue to monitor with CMP (7) Nutrition, metabolism, and development symptoms ICD Codes: R63.8 - Other symptoms and signs concerning food and fluid intake Status: Acute Plan: -Diet: Regular as tolerated -Fluids: Appears well-hydrated, cautious with fluids due to PE -Electrolytes: Within normal limits, continue to monitor -Prophylaxis: Zofran as needed for nausea/vomiting, clonidine as needed for blood pressure greater than 180/110, Tylenol as needed for fever/headaches, famotidine as needed for reflux, DuoNeb's as needed for shortness of breath -Physical therapy consulted, constipation protocol in place (8) DVT prophylaxis Status: Acute Plan: -SCDs Medications: -Xarelto twice daily for pulmonary embolism (Juan Miguel Richardson MD R2) Physician Certification 2 Midnight Certification Type: Admission for Inpatient Services Order for Inpatient Services The services are ordered in accordance with Medicare regulations or non- Medicare payer requirements, as applicable. In the case of services not specified as inpatient-only, they are appropriately provided as inpatient services in accordance with the 2-midnight benchmark. Estimated LOS (days): 3 3 days is the estimated time the patient will need to remain in the hospital, assuming treatment plan goals are met and no additional complications. Post-Hospital Plan: Home (Juan Miguel Richardson MD R2) Problem Qualifiers (1) Pulmonary embolism: Qualified Codes: I26.99 - Other pulmonary embolism without acute cor pulmonale (2) Dysrhythmia: Qualified Codes: I49.9 - Cardiac arrhythmia, unspecified (3) T2DM (type 2 diabetes mellitus): Qualified Codes: E11.9 - Type 2 diabetes mellitus without complications Juan Miguel Richardson MD R2 Sep 07, 2017 12:03 Julia Ortiz MD Sep 08, 2017 15:24
[2017-09-07] MEDS ORDERED: SODIUM CHLORIDE 0.9% FLUSH 10 ML FLUSH IV FLUSH PRN (12:15)
[2017-09-07] MEDS ORDERED: NALOXONE HCL 0.4 MG/ML AMP IV PUSH PRN (12:15)
[2017-09-07] MEDS ORDERED: DULoxetine HCl DR 60 MG CAP PO SCH ×2 (12:15→21:00)
[2017-09-07] MEDS ORDERED: ONDANSETRON HCL 4 MG/2 ML VIAL IVP PRN (12:15)
[2017-09-07] MEDS ORDERED: BISACODYL 10 MG SUPP RECTAL PRN (12:15)
[2017-09-07] MEDS ORDERED: SENNOSIDES 8.6 MG TAB PO PRN (12:15)
[2017-09-07] MEDS ORDERED: ACETAMINOPHEN 325 MG TAB PO PRN (12:15)
[2017-09-07] MEDS ORDERED: MAGNESIUM HYDROXIDE SUSP 30 ML CUP PO PRN (12:15)
[2017-09-07] MEDS ORDERED: DOCUSATE SODIUM 50 MG/SENNA 8.6 MG TAB PO PRN (12:15)
[2017-09-07] MEDS ORDERED: cloNIDine HCL 0.1 MG TAB PO PRN (12:30)
[2017-09-07] MEDS ORDERED: RESP: ALBUTEROL 2.5 MG/IPRATROPIUM 0.5 MG NEB (PRN) NEB (12:30)
[2017-09-07] MEDS ORDERED: FAMOTIDINE 20 MG TAB PO PRN (12:30)
--- NOTE | 2017-09-07 12:59 | EKG ---
Date Performed: 09/07/2017 Time Performed: 06:35:09 PTAGE: 41 years EKG: Sinus rhythm NORMAL ECG PREVIOUS TRACING : 03/01/2017 @06.27 DOCTOR: Xiang Servin Interpretating Date/Time 09/07/2017 12:54:58
[2017-09-07 13:43] LABS: TROPONIN I LESS THAN 0.02 NG/ML (0.02-0.05)
--- NOTE | 2017-09-07 16:43 | MB ---
cc: Ghulam Red MD DATE: 09/07/2017 REASON FOR CONSULTATION: Tachycardia, bradycardia, chest pain. HISTORY OF PRESENT ILLNESS: The patient is a 41-year-old white female with a history of kidney stones, left upper extremity deep venous thrombosis and pulmonary embolism a few years ago, diet-controlled diabetes, who presented to the hospital with complaints of chest pain, tachycardic palpitations, dizziness. She was found to have right-sided pulmonary embolism on CT angiogram today. For the past week, she has had intermittent episodes of substernal and left upper chest discomfort described as "pressure" with some involvement of her left shoulder where it is more "sharp". The patient has noted increased dyspnea from baseline over the last few days. She denies paroxysmal nocturnal dyspnea, pedal edema, syncope, near syncope. Chronically, she experiences intermittent tachycardic palpitations, generally never lasting more than a few minutes. In the last few days, she has noted lower heart rates than usual, often associated with lightheadedness. PAST MEDICAL HISTORY: 1. Kidney stone with history of ureteral stenting 2010 as well as lithotripsy. 2. Left basilic deep venous thrombosis and pulmonary embolism in 2010. 3. Diet-controlled diabetes. PAST SURGICAL HISTORY: 1. section. 2. Breast reduction. 3. Tonsillectomy. 4. Partial hysterectomy. CARDIAC MEDICATIONS AT HOME: Propranolol 40 mg q.12 hours. ALLERGIES: DEMEROL, HYDROMORPHONE, TOPIRAMATE. FAMILY HISTORY: There is no significant family history of early myocardial infarctions. SOCIAL HISTORY: The patient denies alcohol or tobacco abuse. REVIEW OF SYSTEMS: As in the history of present illness, otherwise negative or noncontributory. She does experience occasional migraine headaches. She denies dyspepsia, melena, bright red blood per rectum, flu symptoms, cough. PHYSICAL EXAMINATION: VITAL SIGNS: Blood pressure 110/68 with a pulse of 58, and respirations 18. GENERAL: She is a well-developed, well-nourished white female, in no acute distress. NECK: Jugular venous pressure is normal. Carotid pulses are 2+ bilaterally and without bruits. CHEST: Reveals clear lungs diaz. CARDIAC: She has a regular rhythm and rate without S3, S4 or murmur. ABDOMEN: She has a soft, obese, nontender abdomen. Bowel sounds are present. There is no definite hepatosplenomegaly. EXTREMITIES: Reveals no clubbing, cyanosis or edema. DIAGNOSTIC STUDIES: EKG from today at 6:35 a.m. shows sinus rhythm, normal EKG. EKG from 7:49 a.m. today shows sinus rhythm with occasional premature supraventricular complex. IMAGING STUDIES: Chest x-ray shows no acute disease. LABORATORY DATA: Includes normal CBC. Normal basic metabolic profile, except for glucose 110. Negative cardiac enzymes. IMPRESSION: Mild symptomatic bradycardia (sinus bradycardia), atypical chest pains in this 41-year-old white female with a history of kidney stones, left basilic deep venous thrombosis 2011 with pulmonary embolism at that time, diet controlled diabetes, now admitted with recurrent pulmonary embolism. Cardiac enzymes are negative for myocardial infarction. EKG is normal. Her bradycardia, which is sinus bradycardia, is likely due to propranolol. She states she has been on propranolol for the past 2 years for "tachycardia." She states she has never been told of the exact type of tachycardia that she has experienced. The patient does experience mild lightheadedness with her bradycardic heart rates. So far, on monitoring, she has had no significant tachyarrhythmias. Her echocardiogram appears to be normal on brief bedside review. RECOMMENDATIONS: 1. Agree with Xarelto for treatment of her pulmonary embolism. 2. Reduce her propranolol dose, consider stopping this drug altogether. MD ARIANA Quesada/LAUREL , 02:16 PM , 04:43 PM MOJGAN
--- NOTE | 2017-09-07 17:25 | ECHRPT ---
Indication: Shortness of Breath CONCLUSIONS The left ventricular systolic function is normal with an estimated ejection fraction in the range o f 55-60%. Normal wall motion. Wall thickness is normal. Normal left ventricular size. Atrial septal aneurysm is present (benign finding). There is trace tricuspid valve regurgitation. BP: / HR: Rhythm: MEASUREMENTS (Male / Female) Normal Values Technical Quality:Fair 2D ECHO LV Diastolic Diameter PLAX 5.2 cm 4.2 - 5.9 / 3.9 - 5.3 cm LV Systolic Diameter PLAX 3.6 cm IVS Diastolic Thickness 0.8 cm 0.6 - 1.0 / 0.6 - 0.9 cm LVPW Diastolic Thickness 0.8 cm 0.6 - 1.0 / 0.6 - 0.9 cm LV Relative Wall Thickness 0.3 RV Internal Dim ED PLAX 2.7 cm LVOT Diameter 2.2 cm LA Systolic Diameter LX 3.8 cm 3.0 - 4.0 / 2.7 - 3.8 cm M-MODE Aortic Root Diameter MM 2.4 cm LA Systolic Diameter MM 4.0 cm LA Ao Ratio MM 1.7 AV Cusp Separation MM 2.0 cm DOPPLER AV Peak Velocity 141.0 cm/s AV Peak Gradient 8.0 mmHg LVOT Peak Velocity 92.8 cm/s LVOT Peak Gradient 3.4 mmHg AV Area Cont Eq pk 2.5 cm MV Area PHT 5.4 cm Mitral E Point Velocity 87.9 cm/s Mitral A Point Velocity 66.1 cm/s Mitral E to A Ratio 1.3 LV E' Lateral Velocity 15.0 cm/s Mitral E to LV E' Lateral Ratio 5.9 LV E' Septal Velocity 8.8 cm/s Mitral E to LV E' Septal Ratio 10.0 FINDINGS LEFT VENTRICLE The left ventricular systolic function is normal with an estimated ejection fraction in the range o f 55-60%. Normal wall motion. Wall thickness is normal. Normal left ventricular size. RIGHT VENTRICLE Normal right ventricular size and systolic function. LEFT ATRIUM The left atrial size is upper normal. RIGHT ATRIUM The right atrial size is normal. ATRIAL SEPTUM Atrial septal aneurysm is present (benign finding). AORTA The aortic root and proximal ascending aorta are normal in size on limited imaging. MITRAL VALVE Structurally normal mitral valve. No mitral valve stenosis or regurgitation. AORTIC VALVE Trileaflet aortic valve. No aortic valve stenosis or regurgitation. TRICUSPID VALVE Structurally normal tricuspid valve. There is trace tricuspid valve regurgitation. PULMONARY VALVE Trivial pulmonary valve regurgitation. VESSELS The inferior vena cava is normal in size. PERICARDIUM No pericardial effusion. Ghulam Red MD (Electronically Signed) Final Date:07 September 2017 17:24
[2017-09-07] MEDS ORDERED: DULoxetine HCl DR 30 MG CAP PO SCH (21:00)
[2017-09-07] MEDS ORDERED: PROPRANOLOL HCL 40 MG TAB PO SCH (21:00)
[2017-09-07] MEDS: PROPRANOLOL HCL 40 MG TAB PO SCH (21:15)
[2017-09-07] MEDS: RIVAROXABAN 15 MG TAB PO SCH (21:15)
[2017-09-07] MEDS: SODIUM CHLORIDE 0.9% FLUSH 10 ML FLUSH IV FLUSH SCH (21:15)
[2017-09-07 21:24] LABS: TROPONIN I LESS THAN 0.02 NG/ML (0.02-0.05)
[2017-09-08] VITALS (7 sets, daily range): BP systolic 105–127; BP diastolic 54–66; PULSE 58–64; RESP 16–20; TEMP 97.7–97.8; O2SAT 97–98
[2017-09-08] MEDS: RIVAROXABAN 15 MG TAB PO SCH (07:36)
[2017-09-08] MEDS: SODIUM CHLORIDE 0.9% FLUSH 10 ML FLUSH IV FLUSH SCH (07:37)
[2017-09-08] MEDS: PROPRANOLOL HCL 40 MG TAB PO SCH (07:37)
--- NOTE | 2017-09-08 09:36 | PD.CARD.PN ---
Subjective Subjective Remarks Complains of persistent upper midline chest discomfort, "pressure". No pleurisy , dyspnea, palpitations, dizziness. Objective Medications Item Value Date Time Rivaroxaban 15 mg 09/07/172099 (Xarelto) BID/PO 09/08/17 0736 Propranolol HCl 20 mg 09/07/172099 (Inderal) Q12HR/PO 09/08/17 0737 Current Medications Medications (Trade) Dose Ordered Sig/Pablo Route Start Time Stop Time Status Last Admin (NS Flush) 2 ml UNSCH PRN IV FLUSH 09/07/17 12:15 (NS Flush) 2 ml BID IV FLUSH 09/07/17 21:00 09/08/17 07:37 (Xarelto) 15 mg BID PO 09/07/17 21:00 09/08/17 07:36 (Tylenol) 650 mg Q4H PRN PO 09/07/17 12:15 09/08/17 07:37 (Zofran Inj) 4 mg Q6H PRN IVP 09/07/17 12:15 (Narcan Inj) 0.4 mg UNSCH PRN IV PUSH 09/07/17 12:15 (Shital-Colace) 1 tab BID PRN PO 09/07/17 12:15 (Milk Of Magnesia Liq) 30 ml Q12H PRN PO 09/07/17 12:15 (Senokot) 17.2 mg Q12H PRN PO 09/07/17 12:15 (Dulcolax Supp) 10 mg DAILY PRN RECTAL 09/07/17 12:15 (Pepcid) 20 mg BID PRN PO 09/07/17 12:30 (Catapres) 0.1 mg Q6H PRN PO 09/07/17 12:30 (Duoneb Neb) 1 ampule Q4HR NEB PRN NEB 09/07/17 12:30 (Inderal) 20 mg Q12HR PO 09/07/17 21:00 09/08/17 07:37 (Cymbalta Dr) 60 mg HS PO 09/07/17 21:00 09/07/17 21:15 (Vistaril) 50 mg HS PO 09/07/17 21:00 09/07/17 21:15 Vital Signs / I&O Vital Signs Date Time Temp Pulse Resp B/P (MAP) Pulse Ox O2 Delivery O2 Flow Rate FiO2 09/08/17 08:00 60 09/08/17 07:31 Room Air 09/08/17 04:00 Room Air 09/08/17 04:00 97.7 64 16 114/54 (74) 98 09/08/17 03:43 62 09/08/17 00:00 Room Air 09/08/17 00:00 97.8 58 18 127/66 (86) 98 09/07/17 23:43 63 09/07/17 20:00 Room Air 09/07/17 20:00 98.4 62 18 107/63 (78) 97 09/07/17 19:46 77 09/07/17 18:00 98.0 72 18 107/61 (76) 98 09/07/17 16:19 55 16 108/54 (72) 98 Room Air 09/07/17 13:49 58 18 110/68 (82) 97 09/07/17 10:22 61 20 104/61 (75) 99 Room Air 09/07/17 10:00 20 I/O 09/07/17 09/07/17 09/07/17 09/08/17 09/08/17 09/08/17 07:00 15:00 23:00 07:00 15:00 23:00 Intake Total 1000 ml Balance 1000 ml Intake IV Total 1000 ml Physical Exam GENERAL: Well developed, well nourished. No acute distress. HEENT: Jugular venous pressure is normal. CHEST: Lungs clear to auscultation bilaterally. Unlabored respiratory effort. CARDIAC: Regular rate and rhythm without S3, S4, or murmur. ABDOMEN: Soft, nontender, no hepatosplenomegaly. Bowel sounds present. EXTREMITIES: No clubbing, cyanosis, or edema. Laboratory Laboratory Tests Test 09/07/17 12:53 09/07/17 19:18 Total Creatine Kinase 67 U/L 67 U/L Troponin I LESS THAN 0.02 NG/ML LESS THAN 0.02 NG/ML Assessment and Plan Problem List: (1) Dysrhythmia ICD Codes: I49.9 - Cardiac arrhythmia, unspecified Status: Chronic Plan: Stable overnight. No evidence for significant ji or tachyarrhythmias. HR's better on lowered Inderal dosing. Will continue Inderal as it has helped her migraine headaches in the past. Echo normal. (2) Atypical chest pain ICD Codes: R07.89 - Other chest pain Status: Acute Plan: Very atypical CP's. EKG's normal. Recommend no additional cardiac w/ u given low pretest clinical suspicion her symptoms are due to severe CAD. (3) Pulmonary embolism ICD Codes: I26.99 - Other pulmonary embolism without acute cor pulmonale Status: Acute Plan: Clinically, hemodynamically stable. Continue Xarelto 15 mg bid for 21 days, then 20 mg qd. Code Status full code Discussed Condition With patient Problem Qualifiers (1) Dysrhythmia: Qualified Codes: I49.9 - Cardiac arrhythmia, unspecified (2) Pulmonary embolism: Qualified Codes: I26.99 - Other pulmonary embolism without acute cor pulmonale Ghulam Red MD Sep 08, 2017 09:36
[2017-09-08 10:02] LABS: AUTOMATED NEUTROPHIL # 2.1 TH/MM3 (1.8-7.7); BASOPHIL % 0.7 % (0.0-2.0); EOSINOPHIL # 0.1 TH/MM3 (0-0.4); EOSINOPHIL % 2.2 % (0.0-4.0); HEMATOCRIT 38.2 % (35.0-46.0); HEMOGLOBIN 12.9 GM/DL (11.6-15.3); LYMPH % 39.4 % (9.0-44.0); LYMPHOCYTE # 1.6 TH/MM3 (1.0-4.8); MEAN CELL VOLUME 89.1 FL (80.0-100.0); MEAN CORPUSCULAR HGB CONC 33.6 % (32.0-36.0); MEAN PLATELET VOLUME 7.2 FL (7.0-11.0); MONO % 6.7 % (0.0-8.0); MONOCYTE # 0.3 TH/MM3 (0-0.9); PLATELET COUNT 234 TH/MM3 (150-450); RED BLOOD COUNT 4.29 MIL/MM3 (4.00-5.30); RED CELL DISTRIBUTION WIDTH 13.3 % (11.6-17.2); WHITE BLOOD COUNT 4.1 TH/MM3 (4.0-11.0)
[2017-09-08 10:32] LABS: ALBUMIN 3.3 GM/DL (3.4-5.0); ALT (GPT) 22 U/L (10-53); AST (GOT) 14 U/L (15-37); BICARBONATE 26.3 MEQ/L (21.0-32.0); BLOOD UREA NITROGEN 11 MG/DL (7-18); CALCIUM 8.6 MG/DL (8.5-10.1); CHLORIDE 108 MEQ/L (98-107); CREATININE 0.72 MG/DL (0.50-1.00); GLOMERULAR FILTRATION RATE 89 ML/MIN (>89); GLUCOSE,RANDOM 94 MG/DL (74-106); SODIUM (NA) 142 MEQ/L (136-145)
[2017-09-08 10:35] LABS: ALKALINE PHOSPHATASE 59 U/L (45-117); TOTAL BILIRUBIN ADULT 0.5 MG/DL (0.2-1.0); TOTAL PROTEIN 6.4 GM/DL (6.4-8.2)
[2017-09-08] MEDS ORDERED: XARE15TA PO (11:12)
[2017-09-08] MEDS ORDERED: PROP40TA3 PO (11:12)
--- NOTE | 2017-09-08 11:15 | HHI.DCPOC ---
Discharge Care Plan Diagnosis: (1) Pulmonary embolism (2) Anxiety (3) Atypical chest pain (4) T2DM (type 2 diabetes mellitus) Goals to Promote Your Health * To prevent worsening of your condition and complications * To maintain your health at the optimal level Directions to Meet Your Goals Take your medications as prescribed Follow your dietary instruction Follow activity as directed Keep your appointments as scheduled Take your immunizations and boosters as scheduled If your symptoms worsen call your PCP, if no PCP go to Urgent Care Center or Emergency Room Smoking is Dangerous to Your Health. Avoid second hand smoke Call the 24-hour hour crisis hotline for domestic abuse at Saray Rasheed MD R1 Sep 08, 2017 11:15
--- NOTE | 2017-09-08 13:48 | EKG ---
Date Performed: 09/07/2017 Time Performed: 07:49:16 PTAGE: 41 years EKG: Sinus rhythm WITH FREQUENT ECTOPIC PREMATURE COMPLEXES ABNORMAL RHYTHM ECG PREVIOUS TRACING : 03/01/2017 06.27 Since the previous tracing, no significant change noted DOCTOR: Xiang Servin Interpretating Date/Time 09/08/2017 13:44:31
--- NOTE | 2017-09-08 13:49 | EKG ---
Date Performed: 09/08/2017 Time Performed: 10:01:40 PTAGE: 41 years EKG: Sinus rhythm NORMAL ECG PREVIOUS TRACING : 09/07/2017 15.02 Since the previous tracing, no significant change noted DOCTOR: Xiang Servin Interpretating Date/Time 09/08/2017 13:44:52
--- NOTE | 2017-09-08 13:49 | EKG ---
Date Performed: 09/07/2017 Time Performed: 15:02:41 PTAGE: 41 years EKG: Sinus rhythm NORMAL ECG PREVIOUS TRACING : 09/07/2017 07.49 Since the previous tracing, no significant change noted DOCTOR: Xiang Servin Interpretating Date/Time 09/08/2017 13:44:42
--- NOTE | 2017-09-08 15:20 | HHI.HP ---
[facility] Service Family Medicine Primary Care Physician José Don M.D. Admission Diagnosis Pulmonary embolism, dysrhythmia, chest pain Diagnoses: (1) Pulmonary embolism Diagnosis: Principal (2) Dysrhythmia Diagnosis: Principal (3) Atypical chest pain Diagnosis: Principal (4) Nausea without vomiting Diagnosis: Principal (5) Anxiety Diagnosis: Principal (6) T2DM (type 2 diabetes mellitus) Diagnosis: Principal (7) Nutrition, metabolism, and development symptoms Diagnosis: Principal (8) DVT prophylaxis Diagnosis: Principal International Travel<30 Days: No Contact w/Intl Traveler<30days: No Known Affected Area: No History of Present Illness Mr. Leblanc is a 41-year-old female presenting to the ED with palpitations, shortness of breath, and chest pain. Patient stated that she has had intermittent episodes of tachycardia and bradycardia over the last week with associated chest pain. She describes the chest pain as pressure-like up to 6/ 10 radiating up to her left shoulder. She reports that she has 5-6 episodes per day which are worse at night. These episodes wake her from sleep and lasted approximately 10-15 minutes. Each episode is associated with shortness of breath without diaphoresis. She can describe no alleviating factors, but does state that the episodes "go away on their own." These episodes are not worsened by exertion per her report. She has a history of atrial enlargement that was diagnosed approximately 3 years ago with episodes of intermittent tachycardia. She also has a history of pulmonary embolism that was diagnosed approximately 6 years ago after being hospitalized for a kidney stone with left upper extremity DVT. She was then on Coumadin for approximately 1 year which was discontinued. Her only other complaint is some early satiety with nausea, but denies any fevers, unexplained weight loss/gain, or night sweats. She reported a strong history of anxiety and panic attacks in the past. Her father a year ago and she is having a harder time with this. She has no problems at all now with her breathing and has been hemodynamically stable during her hospitalization. She wishes to go home today and will follow up with her primary care Dr. Review of Systems Other Constitutional: DENIES: Fever, Chills Eyes: DENIES: Blurred vision, Double Vision Ears, nose, mouth, throat: DENIES: Throat pain, Running Nose Respiratory: COMPLAINS OF: Shortness of breath, DENIES: Cough, Hemoptysis, Sputum production Cardiovascular: COMPLAINS OF: Chest pain, Palpitations, DENIES: Syncope, Lower Extremity Edema Gastrointestinal: COMPLAINS OF: Nausea, DENIES: Abdominal pain, Constipation, Diarrhea, Vomiting Genitourinary: DENIES: Hematuria, Dysuria Musculoskeletal: DENIES: Joint pain, Muscle aches Integumentary: DENIES: Rash Hematologic/lymphatic: DENIES: Lymphadenopathy Immunologic/allergic: DENIES: Urticaria Neurologic: COMPLAINS OF: Headache Psychiatric: DENIES: Mood changes Past Family Social History Past Medical History DVT in LUE resulting in PE (s/p IV during admission for kidney stones) Kidney stones Enlarged L atria Migraines Ovarian Cysts T2DM - controlled with diet DJD Anxiety Past Surgical History Partial Hysterectomy x1 Breast reduction Tonsillectomy Allergies: Coded Allergies: hydromorphone (Unverified Allergy, Severe, 09/07/17) meperidine (Unverified Allergy, Severe, VOMITING, 09/07/17) topiramate (Unverified Allergy, Severe, 09/07/17) Family History Father - Liver malignancy, Mother - HPLD, otherwise healthy Children - Healthy Social History Lives with and 2 children. Works at [employer]. Tobacco - No reported history Alcohol - Socially, last drink was last Saturday, 6-8 drinks per occasion Illicit - No reported history Physical Exam Vital Signs Vital Signs Date Time Temp Pulse Resp B/P (MAP) Pulse Ox O2 Delivery O2 Flow Rate FiO2 09/08/17 12:00 63 09/08/17 11:05 98 21 09/08/17 08:00 60 09/08/17 07:50 97.8 58 20 105/61 (76) 97 09/08/17 07:31 Room Air 09/08/17 04:00 Room Air 09/08/17 04:00 97.7 64 16 114/54 (74) 98 09/08/17 03:43 62 09/08/17 00:00 Room Air 09/08/17 00:00 97.8 58 18 127/66 (86) 98 09/07/17 23:43 63 09/07/17 20:00 Room Air 09/07/17 20:00 98.4 62 18 107/63 (78) 97 09/07/17 19:46 77 09/07/17 18:00 98.0 72 18 107/61 (76) 98 09/07/17 16:19 55 16 108/54 (72) 98 Room Air Physical Exam GENERAL: Well-appearing female lying in bed in no acute distress SKIN: Warm and dry. No rash. HEENT: Atraumatic, normocephalic with extraocular motions intact. No rhinorrhea. No palpable LAD, JVD, or thyroid abnormality. CARDIOVASCULAR: Regular rate and rhythm without obvious murmurs, gallops, or rubs. 2+ pulses in all four extremities. RESPIRATORY: Clear to auscultation bilaterally with no CRW. No increased work of breathing at this time on room air. Patient able to communicate in full sentences. GASTROINTESTINAL: Abdomen soft, non-tender, nondistended with positive bowel sounds. No masses appreciated. MUSCULOSKELETAL: No cyanosis or edema. No calf tenderness. Ambulating well without assistance. NEURO/PSYCH: Afocal. Awake, alert, and oriented x3. Normal speech and judgement. Laboratory Laboratory Tests Test 09/07/17 19:18 09/08/17 09:39 Total Creatine Kinase 67 Troponin I LESS THAN 0.02 White Blood Count 4.1 Red Blood Count 4.29 Hemoglobin 12.9 Hematocrit 38.2 Mean Corpuscular Volume 89.1 Mean Corpuscular Hemoglobin 30.0 Mean Corpuscular Hemoglobin Concent 33.6 Red Cell Distribution Width 13.3 Platelet Count 234 Mean Platelet Volume 7.2 Neutrophils (%) (Auto) 51.0 Lymphocytes (%) (Auto) 39.4 Monocytes (%) (Auto) 6.7 Eosinophils (%) (Auto) 2.2 Basophils (%) (Auto) 0.7 Neutrophils # (Auto) 2.1 Lymphocytes # (Auto) 1.6 Monocytes # (Auto) 0.3 Eosinophils # (Auto) 0.1 Basophils # (Auto) 0.0 CBC Comment DIFF FINAL Differential Comment Blood Urea Nitrogen 11 Creatinine 0.72 Random Glucose 94 Total Protein 6.4 Albumin 3.3 Calcium Level 8.6 Alkaline Phosphatase 59 Aspartate Amino Transf (AST/SGOT) 14 Alanine Aminotransferase (ALT/SGPT) 22 Total Bilirubin 0.5 Sodium Level 142 Potassium Level 3.9 Chloride Level 108 Carbon Dioxide Level 26.3 Anion Gap 8 Estimat Glomerular Filtration Rate 89 Result Diagram: 09/08/17 0939 09/08/17 0939 Imaging Last 72 hours Impressions Chest X-Ray 09/07/17 0646 Signed Impressions: CONCLUSION: No acute cardiopulmonary abnormality is identified. CT Angiography 09/07/17 0000 Signed Impressions: CONCLUSION: 1. There is a small segmental and subsegmental filling defect in one of the ri ght lower lobe pulmonary arteries. No other PE is identified. 2. Remainder of the examination demonstrates no acute abnormality. Caprini VTE Risk Assessment Caprini VTE Risk Assessment: Mod/High Risk (score >= 2) Caprini Risk Assessment Model Point Value = 1 Point Value = 2 Point Value = 3 Point Value = 5 Age 41-60 Minor surgery BMI > 25 kg/m2 Swollen legs Varicose veins or History of unexplained or recurrent spontaneous Oral contraceptives or hormone replacement Sepsis (< 1 month) Serious lung disease, including pneumonia (< 1 month) Abnormal pulmonary function Acute myocardial infarction Congestive heart failure (< 1 month) History of inflammatory bowel disease Medical patient at bed rest Age 61-74 Arthroscopic surgery Major open surgery (> 45 min) Laparoscopic surgery (> 45 min) Malignancy Confined to bed (> 72 hours) Immobilizing plaster cast Central venous access Age >= 75 History of VTE Family history of VTE Factor V Leiden Prothrombin [id number] Lupus anticoagulant Anticardiolipin antibodies Elevated serum homocysteine Heparin-induced thrombocytopenia Other congenital or acquired thrombophilia Stroke (< 1 month) Elective arthroplasty Hip, pelvis, or leg fracture Acute spinal cord injury (< 1 month) Prophylaxis Regimen Total Risk Factor Score Risk Level Prophylaxis Regimen 0-1 Low Early ambulation 2 Moderate Order ONE of the following: *Sequential Compression Device (SCD) *Heparin 5000 units SQ BID 3-4 Higher Order ONE of the following medications: *Heparin 5000 units SQ TID *Enoxaparin/Lovenox 40 mg SQ daily (WT < 150 kg, CrCl > 30 mL/min) *Enoxaparin/Lovenox 30 mg SQ daily (WT < 150 kg, CrCl > 10-29 mL/min) *Enoxaparin/Lovenox 30 mg SQ BID (WT < 150 kg, CrCl > 30 mL/min) AND/OR *Sequential Compression Device (SCD) 5 or more Highest Order ONE of the following medications: *Heparin 5000 units SQ TID (Preferred with Epidurals) *Enoxaparin/Lovenox 40 mg SQ daily (WT < 150 kg, CrCl > 30 mL/min) *Enoxaparin/Lovenox 30 mg SQ daily (WT < 150 kg, CrCl > 10-29 mL/min) *Enoxaparin/Lovenox 30 mg SQ BID (WT < 150 kg, CrCl > 30 mL/min) AND *Sequential Compression Device (SCD) Assessment and Plan Assessment and Plan Mrs. Leblanc is a 41-year-old female admitted for pulmonary embolism. Problem List: (1) Pulmonary embolism ICD Codes: I26.99 - Other pulmonary embolism without acute cor pulmonale Status: Acute Plan: Patient presenting with episodes of tachycardia with shortness of breath found to have elevated d-dimer. CTA showing filling defect in the right lower lobe concerning for PE. Patient with history of left upper extremity DVT resulting in PE. Completed 1 year of anticoagulation was Xarelto. -D-dimer: Elevated to 0.56 -CTA: Small segmental and subsegmental filling defect in 1 of the right lower lobe pulmonary arteries. No other PE identified. Otherwise within normal limits. -CBC: Within normal limits -Troponin and EKG without signs of myocardial strain -Pulse oximetry, incentive spirometry -Repeat echocardiogram ordered Medications: -Patient given Xarelto 15 mg once in ED -Continue Xarelto 15 mg twice daily for a total of 21 days -Plan to transition to Xarelto 20 mg daily for chronic anticoagulation -DuoNeb's as needed for shortness of breath as she is doing so well and hemodynamically stable, she will go home today with close follow up with her primary care dr (2) Dysrhythmia ICD Codes: I49.9 - Cardiac arrhythmia, unspecified Status: Chronic Plan: Patient with history of tachycardia diagnosed with left atrial enlargement presenting with new episodes of tachycardia/bradycardia per her report -EKG: Sinus rhythm with heart rate of 77 bpm. PVCs. No interval abnormalities. No acute ST elevation/depression. (Per medical team read.) -Troponin: Less than 0.02 -CK: 71 -CMP: Within normal limits -Repeat echocardiogram ordered for left atrial enlargement was improved from the prior reading given by the Pt -Trend EKG, troponin, CK-MB -Consult cardiology, appreciate recommendations Medications: -Continue home propranolol 40 mg twice a day (3) Atypical chest pain ICD Codes: R07.89 - Other chest pain Status: Acute Plan: Patient presenting with atypical chest pain likely secondary to tachycardic/bradycardic episodes vs this being similar to prior panic attacks -Please see plan as above (4) Nausea without vomiting ICD Codes: R11.0 - Nausea Status: Acute Plan: Patient with recent episodes of nausea without vomiting -CMP: Within normal limits -Patient appears well-hydrated -Patient tolerating regular diet Medications: -Zofran as needed for nausea/vomiting -Famotidine as needed for reflux -Patient given Reglan 5 mg once in ED (5) Anxiety ICD Codes: F41.9 - Anxiety disorder, unspecified Status: Chronic Plan: Patient with reported anxiety Medications: -Continue home duloxetine 60 mg daily encouraged to go for counselling as her anxiety has been worsening (6) T2DM (type 2 diabetes mellitus) ICD Codes: E11.9 - Type 2 diabetes mellitus without complications Status: Chronic Plan: Patient with reported type 2 diabetes mellitus that is diet controlled -Continue to monitor with CMP (7) Nutrition, metabolism, and development symptoms ICD Codes: R63.8 - Other symptoms and signs concerning food and fluid intake Status: Acute Plan: -Diet: Regular as tolerated -Fluids: Appears well-hydrated, cautious with fluids due to PE -Electrolytes: Within normal limits, continue to monitor -Prophylaxis: Zofran as needed for nausea/vomiting, clonidine as needed for blood pressure greater than 180/110, Tylenol as needed for fever/headaches, famotidine as needed for reflux, DuoNeb's as needed for shortness of breath -Physical therapy consulted, constipation protocol in place (8) DVT prophylaxis Status: Acute Plan: -SCDs Medications: -Xarelto twice daily for pulmonary embolism x 3 weeks Problem Qualifiers (1) Pulmonary embolism: Qualified Codes: I26.99 - Other pulmonary embolism without acute cor pulmonale (2) Dysrhythmia: Qualified Codes: I49.9 - Cardiac arrhythmia, unspecified (3) T2DM (type 2 diabetes mellitus): Qualified Codes: E11.9 - Type 2 diabetes mellitus without complications Julia Ortiz MD Sep 08, 2017 15:20
== END 2017-09-08 12:24 | disposition home or self-care (01) | DRG 176 ==
LOC: NEPC 06:16 → NEDA 11:26 → N04A 16:54
PROVIDERS: ADMIT Family Medicine; ATTEND Family Medicine
DX: I26.99 Other pulmonary embolism without acute cor pulmonale (principal); E11.9 Type 2 diabetes mellitus without complications; F41.0 Panic disorder [episodic paroxysmal anxiety]; I51.7 Cardiomegaly; R00.0 Tachycardia, unspecified; I49.3 Ventricular premature depolarization; T44.7X5A Adverse effect of beta-adrenoreceptor antagonists, initial encounter; M19.90 Unspecified osteoarthritis, unspecified site; Z86.711 Personal history of pulmonary embolism; Z88.5 Allergy status to narcotic agent
CPT/HCPCS: 71045; 71275; 80053; 82550; 83690; 84484; 85025; 85379; 93005; 93306; 94150; 96361; 96374; J2270; J2765; J7030; Q9967